=== PATIENT | male | born 1995 | race Caucasian/White ===

== ENCOUNTER 2018-03-16 07:14 | Emergency (ER) | payer MEDICAID ==
--- NOTE | 2018-03-16 08:00 | ER Document Report ---
HPI - HPI Patient complains to provider of: anal pain/itch Onset: Other - few days Pain Level: 3 Context: 22 yo male thinks he has a insect bite to his anal area. No anal intercourse. No fever. No hx abscess. Associated Symptoms: None Exacerbated by: Sitting Relieved by: Denies Similar symptoms previously: No Recently seen / treated by doctor: No - ROS ROS below otherwise negative: Yes Systems Reviewed and Negative: Yes All other systems reviewed and negative Past Medical History - General Information source: Patient - Social History Smoking Status: Never Smoker Lives with: Family Family History: Reviewed & Not Pertinent - Medical History Medical History: Negative Surgical Hx: Negative - Immunizations Immunizations up to date: Yes Hx Diphtheria, Pertussis, Tetanus Vaccination: Yes Vertical Provider Document - CONSTITUTIONAL Agree With Documented VS: Yes Exam Limitations: No Limitations General Appearance: No Apparent Distress - INFECTION CONTROL TRAVEL OUTSIDE OF THE [place] IN LAST 30 DAYS: No - GI/ABDOMEN Notes: small thrombosed hemorrhoid at 7 oclock, into anal canal slightly. - MUSCULOSKELETAL/EXTREMETIES Musculoskeletal/Extremeties: MAEW - NEURO Level of Consciousness: Awake Course - Re-evaluation Re-evalutation: 03/16/18 09:40 Tali MIMS was in the room for the physical exam. Patient was very scared and nervous. It is a firm anal canal hemorrhoid but he does not want incision to remove the clot and he does not want any kind of steroid suppository. Patient only wants to use something topical. He did state that it is smaller than it was yesterday. - Vital Signs Vital signs: Temp Pulse Resp BP Pulse Ox 99.1 F 88 16 132/86 H 99 03/16/18 07:19 03/16/18 07:19 03/16/18 07:19 03/16/18 07:19 03/16/18 07:19 Discharge - Discharge Clinical Impression: Small thrombosed external hemorrhoid Condition: Good Disposition: HOME, SELF-CARE Instructions: HC Hemorrhoid Cream ([facility]), Hemorrhoids ([facility]) Additional Instructions: Follow-up with the general surgeon if you decide to have this hemorrhoid surgically removed, and if it does not resolve. Warm sitz bath twice a day Topical Anusol with steroid cream to the area Keep her stool soft with [id number] stool softener do not strain have a bowel movement Prescriptions: Hydrocortisone Acetate [Anusol-Hc] 1 applic RC BID #21 oint..gm. Forms: Return to Work Referrals: ERICH VICKERS MD [ACTIVE STAFF] - Follow up as needed
[2018-03-16 09:43] VITALS: BP 120/71
== END 2018-03-16 09:47 | disposition home or self-care (01) ==
LOC: ER 07:14
DX: K64.5 Perianal venous thrombosis (principal)
CPT/HCPCS: 99281